=== PATIENT | female | born 1970 | race African-American/Black ===

== ENCOUNTER 2017-11-08 08:36 | Observation (INO) ==
[2017-11-08] MEDS ORDERED: MORPHINE 4 MG/1 ML VIAL IV STA ×2 (09:41→12:12)
[2017-11-08] MEDS ORDERED: ALUM/MAG/SIMETH/LIDO VISC 1:1 30 ML BOTTLE PO STA (09:41)
[2017-11-08] MEDS ORDERED: FUROSEMIDE 20 MG/2 ML VIAL IV STA (09:41)
[2017-11-08] MEDS ORDERED: NITROGLYCERIN 2% OINT 1 INCH/GM PACK TOP STA (09:41)
[2017-11-08] MEDS ORDERED: ONDANSETRON 4 MG/2 ML VIAL IV STA (09:41)
[2017-11-08] MEDS ORDERED: ASPIRIN 325 MG TABLET PO STA (09:41)
[2017-11-08 09:53] LABS: Basophils % 0.3 % (0.0-0.8); Eosinophils # 0.1 10*3/uL (0.0-0.87); Eosinophils % 0.7 % (0.00-10.9); Hematocrit 43.3 VOL% (35.7-47.0); Hemoglobin 14.4 GM/DL (12.0-16.0); Immature Granulocytes % 0.3 %; Immature Granulocytes Absolute 0.03 #; Lymphocytes # 3.4 10*3/uL (1.4-4.0); Lymphocytes % 38.6 % (21.3-54.2); Mean Corpuscular HGB Conc 33.3 GM/DL (32-36); Mean Corpuscular Hemoglobin 28 PG (27-34); Mean Corpuscular Volume 84.1 FL (87-102); Mean Platelet Volume 11.2 FL (9.6-12.0); Monocytes # 0.7 10*3/uL (0.11-0.8); Monocytes % 7.7 % (1.7-12.7); Neutrophils # 4.6 10*3/uL (1.4-7.4); Neutrophils % 52.4 % (38.7-73.9); Platelet Count 244 T/CUMM (130-400); Red Blood Count 5.15 MC/CUMM (3.8-5.5); Red Cell Distribution Width 13.6 % (9.3-17.3); White Blood Count 8.9 T/CUMM (4-12)
[2017-11-08] MEDS ORDERED: FUROSEMIDE 20 MG/2 ML VIAL ONE (09:53)
[2017-11-08] MEDS ORDERED: MORPHINE 4 MG/1 ML VIAL ONE ×2 (09:53→12:02)
[2017-11-08] MEDS ORDERED: ALUM/MAG/SIMETH/LIDO VISC 1:1 30 ML BOTTLE PO ONE (09:53)
[2017-11-08] MEDS ORDERED: ASPIRIN 325 MG TABLET ONE (09:54)
[2017-11-08] MEDS ORDERED: NITROGLYCERIN 2% OINT 1 INCH/GM PACK TOP ONE (09:54)
[2017-11-08] MEDS ORDERED: ONDANSETRON 4 MG/2 ML VIAL ONE (09:54)
[2017-11-08 10:02] LABS: Albumin 4.2 G/DL (3.4-5.0); Bilirubin,Total 0.9 MG/DL (0.2-1.0); Calcium 9.4 MG/DL (8.5-10.1); Potassium 3.8 MMOL/L (3.5-5.1); Total Protein 8.8 G/DL (6.4-8.3)
[2017-11-08] MEDS ORDERED: hydrALAZINE 20 MG/1 ML VIAL IV STA ×2 (10:08→11:08)
[2017-11-08 10:19] LABS: INR 0.9
[2017-11-08] MEDS ORDERED: hydrALAZINE 20 MG/1 ML VIAL ONE ×2 (10:24→11:17)
[2017-11-08 11:11] LABS: Apearance,Urine CLEAR (Clear); Bilirubin,Urine Negative (Negative); Blood, Urine Negative (Negative); Glucose,Urine (UA) Negative (Negative); Ketones,Urine Negative (Negative); Mucus,Urine Occasional /LPF (Occasional); Nitrite,Urine Negative (Negative); Protein,Urine Negative; RBC,Urine 1 /HPF (0-4); Squamous Epithelial Cell,Urine Occasional /HPF (0-10); Urine Color Colorless (Yellow); Urine Specific Gravity 1.003 (1.001-1.035); Urine Urobilinogen < 2.0 EU/DL (0.2-1.0)
[2017-11-08] MEDS ORDERED: LORazepam 2 MG/1 ML VIAL ONE (12:02)
[2017-11-08] MEDS ORDERED: LORazepam 2 MG/1 ML VIAL IV STA (12:12)
[2017-11-08] MEDS ORDERED: ONDANSETRON 4 MG/2 ML VIAL IV PRN (13:01)
[2017-11-08] MEDS ORDERED: ACETAMINOPHEN 325 MG TABLET PO PRN (13:01)
[2017-11-08] MEDS ORDERED: NITROGLYCERIN SL 0.4 MG TABLET SL PRN (14:06)
[2017-11-08 15:50] LABS: C-Reactive Protein HS Cardiac 0.08 MG/DL (0-0.3)
[2017-11-08 17:19] LABS: Troponin I Only < 0.015 NG/ML (0.00-0.045)
[2017-11-08] MEDS: ACETYLCYSTEINE 600 MG CAPSULE PO SCH (21:12)
[2017-11-08] MEDS: DICLOFENAC 1% GEL 100 GM TUBE TOP SCH (22:28)
[2017-11-09 01:30] LABS: Hematocrit 38.5 VOL% (35.7-47.0); Hemoglobin 13.4 GM/DL (12.0-16.0); Mean Corpuscular HGB Conc 34.8 GM/DL (32-36); Mean Corpuscular Hemoglobin 29 PG (27-34); Mean Corpuscular Volume 81.9 FL (87-102); Red Cell Distribution Width 14.1 % (9.3-17.3); White Blood Count 13.4 T/CUMM (4-12)
[2017-11-09 01:31] LABS: Basophils % 0.3 % (0.0-0.8); Eosinophils % 0.2 % (0.00-10.9); Immature Granulocytes % 0.2 %; Immature Granulocytes Absolute 0.03 #; Lymphocytes # 3.9 10*3/uL (1.4-4.0); Lymphocytes % 29.4 % (21.3-54.2); Mean Platelet Volume 11.4 FL (9.6-12.0); Monocytes # 1.1 10*3/uL (0.11-0.8); Monocytes % 8.1 % (1.7-12.7); Neutrophils # 8.3 10*3/uL (1.4-7.4); Neutrophils % 61.8 % (38.7-73.9); Platelet Count 230 T/CUMM (130-400)
[2017-11-09 01:57] LABS: Osmolality,Calculated 273.8 MOS/KG (273-304); Potassium 3.9 MMOL/L (3.5-5.1)
[2017-11-09 02:05] LABS: Risk Ratio 3.8; Troponin I Only 0.057 NG/ML (0.00-0.045); VLDL CHOLESTEROL 34.8 MG/DL
[2017-11-09] MEDS: ASPIRIN EC 81 MG TABLET PO SCH (09:17)
[2017-11-09] MEDS: PANTOPRAZOLE 40 MG TABLET PO SCH (09:17)
[2017-11-09] MEDS: CHLORTHALIDONE 25 MG TABLET PO SCH (09:17)
[2017-11-09] MEDS: ACETYLCYSTEINE 600 MG CAPSULE PO SCH ×2 (09:17→20:37)
[2017-11-09] MEDS: LISINOPRIL 10 MG TABLET PO SCH (09:17)
[2017-11-09] MEDS: DICLOFENAC 1% GEL 100 GM TUBE TOP SCH ×3 (09:17→20:36)
[2017-11-09] MEDS: NEBIVOLOL 5 MG TABLET PO SCH (09:17)
[2017-11-09 09:26] LABS: Troponin I Only 0.032 NG/ML (0.00-0.045)
[2017-11-09 12:11] LABS: Anti-Nuclear Antibody Pattern Homogeneous
[2017-11-09 15:26] LABS: Double Stranded DNA Antibodies 50.8 IU/ML
[2017-11-09 15:29] LABS: Anti SS-A Antibodies < 16 EU/ML; Anti SS-B Antibodies < 16 EU/ML
[2017-11-10 07:39] LABS: Basophils % 0.4 % (0.0-0.8); Eosinophils # 0.1 10*3/uL (0.0-0.87); Eosinophils % 0.6 % (0.00-10.9); Hematocrit 41.3 VOL% (35.7-47.0); Hemoglobin 13.7 GM/DL (12.0-16.0); Immature Granulocytes % 0.5 %; Immature Granulocytes Absolute 0.05 #; Lymphocytes # 3.5 10*3/uL (1.4-4.0); Lymphocytes % 33.8 % (21.3-54.2); Mean Corpuscular HGB Conc 33.2 GM/DL (32-36); Mean Corpuscular Hemoglobin 28 PG (27-34); Mean Corpuscular Volume 84.6 FL (87-102); Mean Platelet Volume 11.4 FL (9.6-12.0); Monocytes # 0.9 10*3/uL (0.11-0.8); Neutrophils # 5.8 10*3/uL (1.4-7.4); Neutrophils % 55.7 % (38.7-73.9); Platelet Count 227 T/CUMM (130-400); Red Blood Count 4.88 MC/CUMM (3.8-5.5); Red Cell Distribution Width 14.2 % (9.3-17.3); White Blood Count 10.4 T/CUMM (4-12)
[2017-11-10 08:08] LABS: Calcium 9.2 MG/DL (8.5-10.1); Osmolality,Calculated 274.7 MOS/KG (273-304); Potassium 4.3 MMOL/L (3.5-5.1)
[2017-11-10] MEDS: NEBIVOLOL 5 MG TABLET PO SCH (09:24)
[2017-11-10] MEDS: CHLORTHALIDONE 25 MG TABLET PO SCH (09:24)
[2017-11-10] MEDS: ASPIRIN EC 81 MG TABLET PO SCH (09:24)
[2017-11-10] MEDS: LISINOPRIL 10 MG TABLET PO SCH (09:24)
[2017-11-10] MEDS: ACETYLCYSTEINE 600 MG CAPSULE PO SCH (09:25)
[2017-11-10] MEDS: PANTOPRAZOLE 40 MG TABLET PO SCH (09:25)
[2017-11-10] MEDS: DICLOFENAC 1% GEL 100 GM TUBE TOP SCH ×2 (09:26→15:45)
[2017-11-10 16:51] VITALS: BP 146/80
== END 2017-11-10 16:23 | disposition home or self-care (01) ==
LOC: N.EDINP 08:36 → N.ED 08:36 → SUATTDRO 12:24 → N.EDINP 13:50 → N.5E 14:01
PROVIDERS: ADMIT Hospitalist; ATTEND Internal Medicine